=== PATIENT | male | born 1995 | race Caucasian/White ===

== ENCOUNTER 2022-07-15 05:48 | Emergency (ER) | payer SELFPAY ==
[~2022-07-15] VITALS: Ht 175.3 cm; Wt 93.0 kg
[2022-07-15] MEDS ORDERED: KETOROLAC 60MG/2ML VIAL IM STA (07:25)
[2022-07-15] MEDS ORDERED: IBUP-2029 MT (08:53)
[2022-07-15 09:05] VITALS: BP 122/68
== END 2022-07-15 09:23 | disposition home or self-care (01) ==
LOC: ER 05:48
DX: S40.012A Contusion of left shoulder, initial encounter (principal); S60.212A Contusion of left wrist, initial encounter; Y04.0XXA Assault by unarmed brawl or fight, initial encounter; Y93.89 Activity, other specified; Y92.89 Other specified places as the place of occurrence of the external cause; Y99.8 Other external cause status
CPT/HCPCS: 71045; 73030; 73110; 96372; 99284; J1885